=== PATIENT | male | born 1980 | race Caucasian/White ===

== ENCOUNTER 2024-02-16 16:27 | Emergency (ER) | payer OTHER ==
[~2024-02-16] VITALS: Ht 177.8 cm; Wt 59.6 kg
[2024-02-16 16:44] VITALS: TEMP 97.4; O2SAT 100
[2024-02-16] MEDS ORDERED: CEPH500C PO (20:36)
[2024-02-16] MEDS: CEPHALEXIN 500 MG CAP PO ONE (20:42)
[2024-02-16] MEDS: OXYCODONE/APAP 5MG/325MG(HOME DOSE PACK) PO ONE (20:43)
[2024-02-16 20:56] VITALS: BP 144/78
== END 2024-02-16 20:57 | disposition home or self-care (01) ==
LOC: M ED 16:27
DX: S62.521B Displaced fracture of distal phalanx of right thumb, initial encounter for open fracture (principal); F12.10 Cannabis abuse, uncomplicated; W23.1XXA Caught, crushed, jammed, or pinched between stationary objects, initial encounter; Y92.9 Unspecified place or not applicable; Y93.89 Activity, other specified; Y99.0 Civilian activity done for income or pay; Z79.2 Long term (current) use of antibiotics

== ENCOUNTER → 2024-02-18 | Outpatient (CLI) | payer OTHER ==
[~2024-02-18] MED LIST: CEPH500C PO
== END ==
LOC: M SOG 16:38
PROVIDERS: ATTEND Orthopaedic Surgery Hand Surgery
DX: M79.644 Pain in right finger(s) (principal)

== ENCOUNTER → 2024-02-26 | Outpatient (CLI) | payer OTHER | LOC: M SOG 16:00 | PROVIDERS: ATTEND Orthopaedic Surgery Hand Surgery | DX: S67.01XA Crushing injury of right thumb, initial encounter (principal); X58.XXXA Exposure to other specified factors, initial encounter; Y92.9 Unspecified place or not applicable; Y93.9 Activity, unspecified; Y99.9 Unspecified external cause status ==